=== PATIENT | female | born 1950 | race Caucasian/White ===

== ENCOUNTER 2017-10-18 10:47 | Emergency (ER) | payer MEDICARE ==
[2017-10-18] MEDS ORDERED: Diphtheria,Pertussis(Acell),Tetanus Vaccine 0.5 ML SDV IM ONE (12:18)
--- NOTE | 2017-10-18 12:21 | EDM.PDOC ---
ED HPI GENERAL MEDICAL PROBLEM - General Chief Complaint: Skin Complaint Stated Complaint: STEPPED ON NAIL, LEFT FOOT Time Seen by Provider: 10/18/17 12:05 Source of Information: Reports: Patient History Limitations: Reports: No Limitations - History of Present Illness INITIAL COMMENTS - FREE TEXT/NARRATIVE: 67-year-old female stepped on a nail with her left foot this morning. It punctured the sole of her foot just proximal to the small toe. It was not deep penetration but there was bleeding. She is mostly in for a tetanus shot. She is not diabetic. Onset: Today Duration: Hour(s): (Within the last 2 hours) Location: Reports: Lower Extremity, Left - Related Data Allergies Allergy/AdvReac Type Severity Reaction Status Date / Time No Known Allergies Allergy Verified 10/18/17 12:09 Home Meds: Home Meds NK [No Known Home Meds] 10/18/17 [History] Past Medical History - Past Health History Medical/Surgical History: Denies Medical/Surgical History Social & Family History - Tobacco Use Smoking Status *Q: Never Smoker ED ROS GENERAL - Review of Systems Review Of Systems: See Below Constitutional: Denies: Fever Respiratory: Reports: No Symptoms GI/Abdominal: Denies: Nausea, Vomiting Neurological: Reports: No Symptoms ED EXAM, SKIN/RASH Exam: See Below Exam Limited By: No Limitations General Appearance: Alert, No Apparent Distress Respiratory/Chest: No Respiratory Distress Extremities: Other (Exam is otherwise limited to the left foot. There is a small fleshy puncture wound on the sole of the foot just proximal to the small toe. There is no bony tenderness, no significant swelling) Course - Vital Signs Last Recorded V/S: Last Vital Signs Temp 97.2 F 10/18/17 12:13 Pulse 50 L 10/18/17 12:13 Resp 16 10/18/17 12:13 BP 138/77 10/18/17 12:13 Pulse Ox 96 10/18/17 12:13 - Orders/Labs/Meds Orders: Active Orders 24 hr Category Date Time Status Vaccines to be Administered [RC] PER UNIT ROUTINE Care 10/18/17 12:18 Active Meds: Medications Discontinued Medications Generic Name Dose Route Start Last Admin Trade Name Freq PRN Reason Stop Dose Admin Diphtheria/Tetanus/Acell Pertussis 0.5 ml 10/18/17 12:18 10/18/17 12:21 Adacel IM 10/18/17 12:19 0.5 ml .ONCE ONE Administration - Re-Assessments/Exams Free Text/Narrative Re-Assessment/Exam: 10/18/17 12:19 Patient has already soaked the foot thoroughly in warm soapy water. A tetanus was supplied but no further treatment necessary at this time. She will contact health care if any significant erythema, warmth, or red streaks arising from the wound. Increase activity as tolerated. Departure - Departure Time of Disposition: 12:33 Disposition: Home, Self-Care 01 Condition: Good Clinical Impression: Puncture wound of foot, left Qualifiers: Encounter type: initial encounter Qualified Code(s): S91.332A - Puncture wound without foreign body, left foot, initial encounter - Discharge Information Instructions: Puncture Wound, [id number] Referrals: PCP,None [Primary Care Provider] - Forms: ED Department Discharge Care Plan Goals: Ibuprofen or naproxen may help. Increase activity as tolerated and recheck if concerns of infection or not healing satisfactorily. - My Orders Last 24 Hours: My Active Orders 10/18/17 12:18 Vaccines to be Administered [RC] PER UNIT ROUTINE - Assessment/Plan Last 24 Hours: My Active Orders 10/18/17 12:18 Vaccines to be Administered [RC] PER UNIT ROUTINE
== END 2017-10-18 12:34 | disposition home or self-care (01) ==
LOC: JP.ED 10:47
DX: S91.332A Puncture wound without foreign body, left foot, initial encounter (principal); Z23 Encounter for immunization; W45.0XXA Nail entering through skin, initial encounter
CPT/HCPCS: 90471; 90715; 99282; 99283-25